=== PATIENT | male | born 1990 | race Caucasian/White ===

== ENCOUNTER 2018-03-24 15:56 | Emergency (ER) | payer BC ==
[~2018-03-24] VITALS: Ht 182.9 cm; Wt 88.5 kg
[~2018-03-24 15:56] MED LIST: NO MEDS
[2018-03-24 16:15] VITALS: BP 140/100
--- NOTE | 2018-03-24 18:00 | NUR ---
called pt 2x in lobby but no response
--- NOTE | 2018-03-24 18:20 | NUR ---
called in [facility] no response
== END 2018-03-24 18:30 | disposition left against medical advice (07) ==
LOC: ER 16:02
DX: J45.909 Unspecified asthma, uncomplicated (principal); Z53.21 Procedure and treatment not carried out due to patient leaving prior to being seen by health care provider